=== PATIENT | female | born 1965 | race Caucasian/White ===

== ENCOUNTER 2016-09-28 07:18 | Day surgery (SDC) | payer BC ==
[~2016-09-28] VITALS: Ht 160 cm; Wt 84.0 kg
[~2016-09-28 07:18] MED LIST: ACET-2723 PO; LIDOCAINE 1% (10mg/ml) 2ml SDV INJ ONE; LR 1,000 ML IV SCH; METO-277 PO; MULT-933 PO
--- OUTSIDE RECORDS SUMMARY | 2016-09-28 07:21 | XMS REPORT | Referral Summary ---
Author Author [facility], Family Medicine Organization [facility] Address Unknown Phone Unavailable Care Team Providers Care Court Officer Name Role Phone Ariel Austin Primary Care Physician [phone] Encounter JUDI [id number] Date(s): 09/26/14 - 09/26/14 [facility], [address] [place] [id number]- Discharge Diagnosis: Hypertension Discharge Diagnosis: Well woman exam Discharge Diagnosis: Tobacco use Discharge Disposition: 01-Home or Self Care Attending Physician: Ml Willett APRN Admitting Physician: Ml Willett APRN Vital Signs Most recent to 1 oldest [Reference Range]: Blood Pressure 128/86 mmHg [90-140/60-90 mmHg] (09/26/14 3:51 PM) Problem List Condition Effective Dates Status Health Status Informant Chronic cigarette Active smoker(Confirmed) Bladder 2003 Active tie-up(Confirmed)1 Lesion of Active throat(Confirmed) GERD Active (gastroesophageal reflux disease)(Confirmed) Hypertension(Confirm Active ed) Obesity(Confirmed) Active patient Overweight(Confirmed Active ) Breast pain in Active female(Confirmed) Vaginal 1994 Resolved delivery(Confirmed) Vaginal 1990 Resolved delivery(Confirmed) Chicken Active pox(Confirmed) 1Dr. Cho Allergies, Adverse Reactions, Alerts Substance Reaction Severity Status sulfanilamide topical Active Medications metoprolol succinate 50 mg oral tablet, extended release 50 mg 1 tabs, Oral, Daily, # 30 tabs, 5 Refill(s), Pharmacy: [facility] Start Date: 10/10/14 Status: Ordered Results No data available for this section Immunizations Vaccine Date Refusal Reason tetanus/diphth/pertuss (Tdap) adult/adol 09/26/07 tetanus-diphth toxoids (Td) adult/adol 11/22/01 Procedures Procedure Date Related Diagnosis Body Site Vaginal hysterectomy 1999 Social History Social History Type Response Smoking Status Current every day smoker; Type: Cigarettes; Tobacco use per day: 1 Pack Assessment and Plan Extracted from: Title: Ambulatory Patient Education Author: Ml Willett APRN Date: Family Medicine Health Maintenance, Female A healthy lifestyle and preventative care can promote health and wellness. Maintain regular health, dental, and eye exams. Eat a healthy diet. Foods like vegetables, fruits, whole grains, low-fat dairy products, and lean protein foods contain the nutrients you need without too many calories. Decrease your intake of foods high in solid fats, added sugars, and salt. Get information about a proper diet from your caregiver, if necessary. Regular physical exercise is one of the most important things you can do for your health. Most adults should get at least 150 minutes of moderate- intensity exercise (any activity that increases your heart rate and causes you to sweat) each week. In addition, most adults need muscle-strengthening exercises on 2 or more days a week. Maintain a healthy weight. The body mass index (BMI) is a screening tool to identify possible weight problems. It provides an estimate of body fat based on height and weight. Your caregiver can help determine your BMI, and can help you achieve or maintain a healthy weight. For adults 20 years and older: A BMI below 18.5 is considered underweight. A BMI of 18.5 to 24.9 is normal. A BMI of 25 to 29.9 is considered overweight. A BMI of 30 and above is considered obese. Maintain normal blood lipids and cholesterol by exercising and minimizing your intake of saturated fat. Eat a balanced diet with plenty of fruits and vegetables. Blood tests for lipids and cholesterol should begin at age 20 and be repeated every 5 years. If your lipid or cholesterol levels are high, you are over 50, or you are a high risk for heart disease, you may need your cholesterol levels checked more frequently.Ongoing high lipid and cholesterol levels should be treated with medicines if diet and exercise are not effective. If you smoke, find out from your caregiver how to quit. If you do not use tobacco, do not start. Lung cancer screening is recommended for adults aged 5580 years who are at high risk for developing lung cancer because of a history of smoking. Yearly low-dose computed tomography (CT) is recommended for people who have at least a [id number] history of smoking and are a current smoker or have quit within the past 15 years. A pack year of smoking is smoking an average of 1 pack of cigarettes a day for 1 year (for example: 1 pack a day for 30 years or 2 packs a day for 15 years). Yearly screening should continue until the smoker has stopped smoking for at least 15 years. Yearly screening should also be stopped for people who develop a health problem that would prevent them from having lung cancer treatment. If you are , do not drink alcohol. If you are , be very cautious about drinking alcohol. If you are not and choose to drink alcohol, do not exceed 1 drink per day. One drink is considered to be 12 ounces (355 mL) of beer, 5 ounces (148 mL) of wine, or 1.5 ounces (44 mL) of liquor. Avoid use of street drugs. Do not share needles with anyone. Ask for help if you need support or instructions about stopping the use of drugs. High blood pressure causes heart disease and increases the risk of stroke. Blood pressure should be checked at least every 1 to 2 years. Ongoing high blood pressure should be treated with medicines, if weight loss and exercise are not effective. If you are 55 to 79 years old, ask your caregiver if you should take aspirin to prevent strokes. Diabetes screening involves taking a blood sample to check your fasting blood sugar level. This should be done once every 3 years, after age 45, if you are within normal weight and without risk factors for diabetes. Testing should be considered at a younger age or be carried out more frequently if you are overweight and have at least 1 risk factor for diabetes. Breast cancer screening is essential preventative care for women. You should practice "breast self-awareness." This means understanding the normal appearance and feel of your breasts and may include breast self-examination. Any changes detected, no matter how small, should be reported to a caregiver. Women in their 20s and 30s should have a clinical breast exam (CBE) by a caregiver as part of a regular health exam every 1 to 3 years. After age 40, women should have a CBE every year. Starting at age 40, women should consider having a mammogram (breast X-ray ) every year. Women who have a family history of breast cancer should talk to their caregiver about genetic screening. Women at a high risk of breast cancer should talk to their caregiver about having an MRI and a mammogram every year. Breast cancer gene (BRCA )-related cancer risk assessment is recommended for women who have family members with BRCA -related cancers. BRCA -related cancers include breast, ovarian, tubal, and peritoneal cancers. Having family members with these cancers may be associated with an increased risk for harmful changes (mutations ) in the breast cancer genes BRCA1 and BRCA2 . Results of the assessment will determine the need for genetic counseling and BRCA1 and BRCA2 testing. The Pap test is a screening test for cervical cancer. Women should have a Pap test starting at age 21. Between ages 21 and 29, Pap tests should be repeated every 2 years. Beginning at age 30, you should have a Pap test every 3 years as long as the past 3 Pap tests have been normal. If you had a hysterectomy for a problem that was not cancer or a condition that could lead to cancer, then you no longer need Pap tests. If you are between ages 65 and 70 , and you have had normal Pap tests going back 10 years, you no longer need Pap tests. If you have had past treatment for cervical cancer or a condition that could lead to cancer, you need Pap tests and screening for cancer for at least 20 years after your treatment. If Pap tests have been discontinued, risk factors (such as a new sexual partner) need to be reassessed to determine if screening should be resumed. Some women have medical problems that increase the chance of getting cervical cancer. In these cases, your caregiver may recommend more frequent screening and Pap tests. The human papillomavirus (HPV) test is an additional test that may be used for cervical cancer screening. The HPV test looks for the virus that can cause the cell changes on the cervix. The cells collected during the Pap test can be tested for HPV. The HPV test could be used to screen women aged 30 years and older, and should be used in women of any age who have unclear Pap test results. After the age of 30, women should have HPV testing at the same frequency as a Pap test. Colorectal cancer can be detected and often prevented. Most routine colorectal cancer screening begins at the age of 50 and continues through age 75. However, your caregiver may recommend screening at an earlier age if you have risk factors for colon cancer. On a yearly basis, your caregiver may provide home test kits to check for hidden blood in the stool. Use of a small camera at the end of a tube, to directly examine the colon (sigmoidoscopy or colonoscopy ), can detect the earliest forms of colorectal cancer. Talk to your caregiver about this at age 50, when routine screening begins. Direct examination of the colon should be repeated every 5 to 10 years through age 75, unless early forms of pre-cancerous polyps or small growths are found. Hepatitis C blood testing is recommended for all people born from 1945 through 1965 and any individual with known risks for hepatitis C. Practice safe sex. Use condoms and avoid high-risk sexual practices to reduce the spread of sexually transmitted infections (STIs). Sexually active women aged 25 and younger should be checked for Chlamydia, which is a common sexually transmitted infection. Older women with new or multiple partners should also be tested for Chlamydia. Testing for other STIs is recommended if you are sexually active and at increased risk. Osteoporosis is a disease in which the bones lose minerals and strength with aging. This can result in serious bone fractures. The risk of osteoporosis can be identified using a bone density scan. Women ages 65 and over and women at risk for fractures or osteoporosis should discuss screening with their caregivers. Ask your caregiver whether you should be taking a calcium supplement or vitamin D to reduce the rate of osteoporosis. Menopause can be associated with physical symptoms and risks. Hormone replacement therapy is available to decrease symptoms and risks. You should talk to your caregiver about whether hormone replacement therapy is right for you. Use sunscreen. Apply sunscreen liberally and repeatedly throughout the day. You should seek shade when your shadow is shorter than you. Protect yourself by wearing long sleeves, pants, a wide-brimmed hat, and sunglasses year round, whenever you are outdoors. Notify your caregiver of new moles or changes in moles, especially if there is a change in shape or color. Also notify your caregiver if a mole is larger than the size of a pencil eraser. Stay current with your immunizations. Document Released: 11/30/2011 Document Revised: 09/11/2013 Document Reviewed: ExitCare Patient Information 2014 [employer] [facility]. Nicotine Addiction Nicotine can act as both a stimulant (excites/activates ) and a sedative (calms/ quiets ). Immediately after exposure to nicotine, there is a "kick" caused in part by the drug's stimulation of the adrenal glands and resulting discharge of adrenaline (epinephrine ). The noyola of adrenaline stimulates the body and causes a sudden release of sugar. This means that smokers are always slightly hyperglycemic. Hyperglycemic means that the blood sugar is high, just like in diabetics. Nicotine also decreases the amount of insulin which helps control sugar levels in the body. There is an increase in blood pressure, breathing, and the rate of heart beats. In addition, nicotine indirectly causes a release of dopamine in the brain that controls pleasure and motivation. A similar reaction is seen with other drugs of abuse, such as cocaine and heroin. This dopamine release is thought to cause the pleasurable sensations when smoking. In some different cases, nicotine can also create a calming effect, depending on sensitivity of the smoker's nervous system and the dose of nicotine taken. WHAT HAPPENS WHEN NICOTINE IS TAKEN FOR LONG PERIODS OF TIME? Long-term use of nicotine results in addiction. It is difficult to stop. Repeated use of nicotine creates tolerance. Higher doses of nicotine are needed to get the "kick." When nicotine use is stopped, withdrawal may last a month or more. Withdrawal may begin within a few hours after the last cigarette. Symptoms peak within the first few days and may lessen within a few weeks. For some people, however, symptoms may last for months or longer. Withdrawal symptoms include: Irritability. Craving. Learning and attention deficits. Sleep disturbances. Increased appetite. Craving for tobacco may last for 6 months or longer. Many behaviors done while using nicotine can also play a part in the severity of withdrawal symptoms. For some people, the feel, smell, and sight of a cigarette and the ritual of obtaining, handling, lighting, and smoking the cigarette are closely linked with the pleasure of smoking. When stopped, they also miss the related behaviors which make the withdrawal or craving worse. While nicotine gum and patches may lessen the drug aspects of withdrawal, cravings often persist. WHAT ARE THE MEDICAL CONSEQUENCES OF NICOTINE USE? Nicotine addiction accounts for one-third of all cancers. The top cancer caused by tobacco is lung cancer. Lung cancer is the number one cancer killer of both men and women. Smoking is also associated with cancers of the: Mouth. Pharynx. Larynx. Esophagus. Stomach. Pancreas. Cervix. Kidney. Ureter. Bladder. Smoking also causes lung diseases such as lasting (chronic ) bronchitis and emphysema. It worsens asthma in adults and children. Smoking increases the risk of heart disease, including: Stroke. Heart attack. Vascular disease. Aneurysm. Passive or secondary smoke can also increase medical risks including: Asthma in children. Sudden Infant Syndrome (SIDS). Additionally, dropped cigarettes are the leading cause of residential fire fatalities. Nicotine poisoning has been reported from accidental ingestion of tobacco products by children and pets. usually results in a few minutes from respiratory failure (when a person stops breathing) caused by paralysis. TREATMENT Medication. Nicotine replacement medicines such as nicotine gum and the patch are used to stop smoking. These medicines gradually lower the dosage of nicotine in the body. These medicines do not contain the carbon monoxide and other toxins found in tobacco smoke. Hypnotherapy. Relaxation therapy. Nicotine Anonymous (a 12-step support program). Find times and locations in your local yellow pages. Document Released: 01/20/2005 Document Revised: 08/08/2012 Document Reviewed: ExitCare Patient Information 2014 [employer]. Preventive Care for Adults, Female A healthy lifestyle and preventive care can promote health and wellness. Preventive health guidelines for women include the following hood practices. A routine yearly physical is a good way to check with your health care provider about your health and preventive screening. It is a chance to share any concerns and updates on your health and to receive a thorough exam. Visit your dentist for a routine exam and preventive care every 6 months. [place] your teeth twice a day and floss once a day. Good oral hygiene prevents tooth decay and gum disease. The frequency of eye exams is based on your age, health, family medical history, use of contact lenses, and other factors. Follow your health care provider's recommendations for frequency of eye exams. Eat a healthy diet. Foods like vegetables, fruits, whole grains, low-fat dairy products, and lean protein foods contain the nutrients you need without too many calories. Decrease your intake of foods high in solid fats, added sugars, and salt. Eat the right amount of calories for you.Get information about a proper diet from your health care provider, if necessary. Regular physical exercise is one of the most important things you can do for your health. Most adults should get at least 150 minutes of moderate- intensity exercise (any activity that increases your heart rate and causes you to sweat) each week. In addition, most adults need muscle-strengthening exercises on 2 or more days a week. Maintain a healthy weight. The body mass index (BMI) is a screening tool to identify possible weight problems. It provides an estimate of body fat based on height and weight. Your health care provider can find your BMI, and can help you achieve or maintain a healthy weight.For adults 20 years and older: A BMI below 18.5 is considered underweight. A BMI of 18.5 to 24.9 is normal. A BMI of 25 to 29.9 is considered overweight. A BMI of 30 and above is considered obese. Maintain normal blood lipids and cholesterol levels by exercising and minimizing your intake of saturated fat. Eat a balanced diet with plenty of fruit and vegetables. Blood tests for lipids and cholesterol should begin at age 20 and be repeated every 5 years. If your lipid or cholesterol levels are high, you are over 50, or you are at high risk for heart disease, you may need your cholesterol levels checked more frequently.Ongoing high lipid and cholesterol levels should be treated with medicines if diet and exercise are not working. If you smoke, find out from your health care provider how to quit. If you do not use tobacco, do not start. Lung cancer screening is recommended for adults aged 5580 years who are at high risk for developing lung cancer because of a history of smoking. A yearly low-dose CT scan of the lungs is recommended for people who have at least a 41-[id number]-otsy history of smoking and are a current smoker or have quit within the past 15 years. A pack year of smoking is smoking an average of 1 pack of cigarettes a day for 1 year (for example: 1 pack a day for 30 years or 2 packs a day for 15 years). Yearly screening should continue until the smoker has stopped smoking for at least 15 years. Yearly screening should be stopped for people who develop a health problem that would prevent them from having lung cancer treatment. If you are , do not drink alcohol. If you are , be very cautious about drinking alcohol. If you are not and choose to drink alcohol, do not have more than 1 drink per day. One drink is considered to be 12 ounces (355 mL) of beer, 5 ounces (148 mL) of wine, or 1.5 ounces (44 mL) of liquor. Avoid use of street drugs. Do not share needles with anyone. Ask for help if you need support or instructions about stopping the use of drugs. High blood pressure causes heart disease and increases the risk of stroke. Your blood pressure should be checked at least every 1 to 2 years. Ongoing high blood pressure should be treated with medicines if weight loss and exercise do not work. If you are 5579 years old, ask your health care provider if you should take aspirin to prevent strokes. Diabetes screening involves taking a blood sample to check your fasting blood sugar level. This should be done once every 3 years, after age 45, if you are within normal weight and without risk factors for diabetes. Testing should be considered at a younger age or be carried out more frequently if you are overweight and have at least 1 risk factor for diabetes. Breast cancer screening is essential preventive care for women. You should practice "breast self-awareness." This means understanding the normal appearance and feel of your breasts and may include breast self-examination. Any changes detected, no matter how small, should be reported to a health care provider. Women in their 20s and 30s should have a clinical breast exam (CBE) by a health care provider as part of a regular health exam every 1 to 3 years. After age 40, women should have a CBE every year. Starting at age 40, women should consider having a mammogram (breast X-ray test ) every year. Women who have a family history of breast cancer should talk to their health care provider about genetic screening. Women at a high risk of breast cancer should talk to their health care providers about having an MRI and a mammogram every year. Breast cancer gene (BRCA )-related cancer risk assessment is recommended for women who have family members with BRCA -related cancers. BRCA -related cancers include breast, ovarian, tubal, and peritoneal cancers. Having family members with these cancers may be associated with an increased risk for harmful changes (mutations ) in the breast cancer genes BRCA1 and BRCA2 . Results of the assessment will determine the need for genetic counseling and BRCA1 and BRCA2 testing. The Pap test is a screening test for cervical cancer. A Pap test can show cell changes on the cervix that might become cervical cancer if left untreated. A Pap test is a procedure in which cells are obtained and examined from the lower end of the uterus (cervix ). Women should have a Pap test starting at age 21. Between ages 21 and 29, Pap tests should be repeated every 2 years. Beginning at age 30, you should have a Pap test every 3 years as long as the past 3 Pap tests have been normal. Some women have medical problems that increase the chance of getting cervical cancer. Talk to your health care provider about these problems. It is especially important to talk to your health care provider if a new problem develops soon after your last Pap test. In these cases, your health care provider may recommend more frequent screening and Pap tests. The above recommendations are the same for women who have or have not gotten the vaccine for human papillomavirus (HPV). If you had a hysterectomy for a problem that was not cancer or a condition that could lead to cancer, then you no longer need Pap tests. Even if you no longer need a Pap test, a regular exam is a good idea to make sure no other problems are starting. If you are between ages 65 and 70 years, and you have had normal Pap tests going back 10 years, you no longer need Pap tests. Even if you no longer need a Pap test, a regular exam is a good idea to make sure no other problems are starting. If you have had past treatment for cervical cancer or a condition that could lead to cancer, you need Pap tests and screening for cancer for at least 20 years after your treatment. If Pap tests have been discontinued, risk factors (such as a new sexual partner) need to be reassessed to determine if screening should be resumed. The HPV test is an additional test that may be used for cervical cancer screening. The HPV test looks for the virus that can cause the cell changes on the cervix. The cells collected during the Pap test can be tested for HPV. The HPV test could be used to screen women aged 30 years and older, and should be used in women of any age who have unclear Pap test results. After the age of 30 , women should have HPV testing at the same frequency as a Pap test. Colorectal cancer can be detected and often prevented. Most routine colorectal cancer screening begins at the age of 50 years and continues through age 75 years. However, your health care provider may recommend screening at an earlier age if you have risk factors for colon cancer. On a yearly basis, your health care provider may provide home test kits to check for hidden blood in the stool. Use of a small camera at the end of a tube, to directly examine the colon (sigmoidoscopy or colonoscopy ), can detect the earliest forms of colorectal cancer. Talk to your health care provider about this at age 50, when routine screening begins. Direct exam of the colon should be repeated every 5 10 years through age 75 years, unless early forms of pre-cancerous polyps or small growths are found. People who are at an increased risk for hepatitis B should be screened for this virus. You are considered at high risk for hepatitis B if: You were born in a country where hepatitis B occurs often. Talk with your health care provider about which countries are considered high risk. Your parents were born in a high-risk country and you have not received a shot to protect against hepatitis B (hepatitis B vaccine) . You have HIV or AIDS. You use needles to inject street drugs. You live with, or have sex with, someone who has Hepatitis B. You get hemodialysis treatment. You take certain medicines for conditions like cancer, organ transplantation, and autoimmune conditions. Hepatitis C blood testing is recommended for all people born from 1945 through 1965 and any individual with known risks for hepatitis C. Practice safe sex. Use condoms and avoid high-risk sexual practices to reduce the spread of sexually transmitted infections (STIs). STIs include gonorrhea, chlamydia, syphilis, trichomonas, herpes, HPV, and human immunodeficiency virus (HIV). Herpes, HIV, and HPV are viral illnesses that have no cure. They can result in disability, cancer, and . Sexually active women aged 25 years and younger should be checked for chlamydia. Older women with new or multiple partners should also be tested for chlamydia. Testing for other STIs is recommended if you are sexually active and at increased risk. Osteoporosis is a disease in which the bones lose minerals and strength with aging. This can result in serious bone fractures or breaks. The risk of osteoporosis can be identified using a bone density scan. Women ages 65 years and over and women at risk for fractures or osteoporosis should discuss screening with their health care providers. Ask your health care provider whether you should take a calcium supplement or vitamin D to reduce the rate of osteoporosis. Menopause can be associated with physical symptoms and risks. Hormone replacement therapy is available to decrease symptoms and risks. You should talk to your health care provider about whether hormone replacement therapy is right for you. Use sunscreen. Apply sunscreen liberally and repeatedly throughout the day. You should seek shade when your shadow is shorter than you. Protect yourself by wearing long sleeves, pants, a wide-brimmed hat, and sunglasses year round, whenever you are outdoors. Once a month, do a whole body skin exam, using a mirror to look at the skin on your back. Tell your health care provider of new moles, moles that have irregular borders, moles that are larger than a pencil eraser, or moles that have changed in shape or color. Stay current with required vaccines (immunizations ). Influenza vaccine. All adults should be immunized every year. Tetanus, diphtheria, and acellular pertussis (Td, Tdap) vaccine. women should receive 1 dose of Tdap vaccine during each . The dose should be obtained regardless of the length of time since the last dose. Immunization is preferred during the [id number] week of gestation. An adult who has not previously received Tdap or who does not know her vaccine status should receive 1 dose of Tdap. This initial dose should be followed by tetanus and diphtheria toxoids (Td) booster doses every 10 years. Adults with an unknown or incomplete history of completing a 3-dose immunization series with Td -containing vaccines should begin or complete a primary immunization series including a Tdap dose. Adults should receive a Td booster every 10 years. Varicella vaccine. An adult without evidence of immunity to varicella should receive 2 doses or a second dose if she has previously received 1 dose. females who do not have evidence of immunity should receive the first dose after . This first dose should be obtained before leaving the health care facility. The second dose should be obtained 48 weeks after the first dose. Human papillomavirus (HPV) vaccine. Females aged 1326 years who have not received the vaccine previously should obtain the 3-dose series. The vaccine is not recommended for use in females. However, testing is not needed before receiving a dose. If a female is found to be after receiving a dose, no treatment is needed. In that case, the remaining doses should be delayed until after the . Immunization is recommended for any person with an immunocompromised condition through the age of 26 years if she did not get any or all doses earlier. During the 3-dose series, the second dose should be obtained 48 weeks after the first dose. The third dose should be obtained 24 weeks after the first dose and 16 weeks after the second dose. Zoster vaccine. One dose is recommended for adults aged 60 years or older unless certain conditions are present. Measles, mumps, and rubella (MMR) vaccine. Adults born before 1957 generally are considered immune to measles and mumps. Adults born in 1957 or later should have 1 or more doses of MMR vaccine unless there is a contraindication to the vaccine or there is laboratory evidence of immunity to each of the three diseases. A routine second dose of MMR vaccine should be obtained at least 28 days after the first dose for students attending postsecondary schools, health care workers, or international travelers. People who received inactivated measles vaccine or an unknown type of measles vaccine during should receive 2 doses of MMR vaccine. People who received inactivated mumps vaccine or an unknown type of mumps vaccine before 1978 and are at high risk for mumps infection should consider immunization with 2 doses of MMR vaccine. For females of childbearing age, rubella immunity should be determined. If there is no evidence of immunity, females who are not should be vaccinated. If there is no evidence of immunity, females who are should delay immunization until after . Unvaccinated health care workers born before 1955 who lack laboratory evidence of measles, mumps, or rubella immunity or laboratory confirmation of disease should consider measles and mumps immunization with 2 doses of MMR vaccine or rubella immunization with 1 dose of MMR vaccine. Pneumococcal 13-valent conjugate (PCV13) vaccine. When indicated, a person who is uncertain of her immunization history and has no record of immunization should receive the PCV13 vaccine. An adult aged 19 years or older who has certain medical conditions and has not been previously immunized should receive 1 dose of PCV13 vaccine. This PCV13 should be followed with a dose of pneumococcal polysaccharide (PPSV23) vaccine. The PPSV23 vaccine dose should be obtained at least 8 weeks after the dose of PCV13 vaccine. An adult aged 19 years or older who has certain medical conditions and previously received 1 or more doses of PPSV23 vaccine should receive 1 dose of PCV13. The PCV13 vaccine dose should be obtained 1 or more years after the last PPSV23 vaccine dose. Pneumococcal polysaccharide (PPSV23) vaccine. When PCV13 is also indicated , PCV13 should be obtained first. All adults aged 65 years and older should be immunized. An adult younger than age 65 years who has certain medical conditions should be immunized. Any person who resides in a [facility]p or long -term care facility should be immunized. An adult smoker should be immunized. People with an immunocompromised condition and certain other conditions should receive both PCV13 and PPSV23 vaccines. People with human immunodeficiency virus (HIV) infection should be immunized as soon as possible after diagnosis. Immunization during chemotherapy or radiation therapy should be avoided. Routine use of PPSV23 vaccine is not recommended for [place] Indians, [place] Natives, or people younger than 65 years unless there are medical conditions that require PPSV23 vaccine. When indicated, people who have unknown immunization and have no record of immunization should receive PPSV23 vaccine. One-time revaccination 5 years after the first dose of PPSV23 is recommended for people aged 1964 years who have chronic kidney failure, nephrotic syndrome, asplenia, or immunocompromised conditions. People who received 12 doses of PPSV23 before age 65 years should receive another dose of PPSV23 vaccine at age 65 years or later if at least 5 years have passed since the previous dose. Doses of PPSV23 are not needed for people immunized with PPSV23 at or after age 65 years. Meningococcal vaccine. Adults with asplenia or persistent complement component deficiencies should receive 2 doses of quadrivalent meningococcal conjugate (MenACWY-D) vaccine. The doses should be obtained at least 2 months apart. Microbiologists working with certain meningococcal bacteria, recruits, people at risk during an outbreak, and people who travel to or live in countries with a high rate of meningitis should be immunized. A first-year college student up through age 21 years who is living in a residence [place] should receive a dose if she did not receive a dose on or after her 16th birthday. Adults who have certain high-risk conditions should receive one or more doses of vaccine. Hepatitis A vaccine. Adults who wish to be protected from this disease, have certain high-risk conditions, work with hepatitis A-infected animals, work in hepatitis A research labs, or travel to or work in countries with a high rate of hepatitis A should be immunized. Adults who were previously unvaccinated and who anticipate close contact with an international adoptee during the first 60 days after arrival in the [place] from a country with a high rate of hepatitis A should be immunized. Hepatitis B vaccine. Adults who wish to be protected from this disease, have certain high-risk conditions, may be exposed to blood or other infectious body fluids, are household contacts or sex partners of hepatitis B positive people, are clients or workers in certain care facilities, or travel to or work in countries with a high rate of hepatitis B should be immunized. Haemophilus influenzae type b (Hib) vaccine. A previously unvaccinated person with asplenia or sickle cell disease or having a scheduled splenectomy should receive 1 dose of Hib vaccine. Regardless of previous immunization, a recipient of a hematopoietic stem cell transplant should receive a 3-dose series 612 months after her successful transplant. Hib vaccine is not recommended for adults with HIV infection. Preventive Services / Frequency Ages 19 to 39years Blood pressure check. / Every 1 to 2 years. Lipid and cholesterol check. / Every 5 years beginning at age 20. Clinical breast exam. / Every 3 years for women in their 20s and 30s. BRCA -related cancer risk assessment. / For women who have family members with a BRCA -related cancer (breast, ovarian, tubal, or peritoneal cancers). Pap test. / Every 2 years from ages 21 through 29. Every 3 years starting at age 30 through age 65 or 70 with a history of 3 consecutive normal Pap tests. HPV screening. / Every 3 years from ages 30 through ages 65 to 70 with a history of 3 consecutive normal Pap tests. Hepatitis C blood test. / For any individual with known risks for hepatitis C. Skin self-exam. / Monthly. Influenza vaccine. / Every year. Tetanus, diphtheria, and acellular pertussis (Tdap, Td) vaccine. / Consult your health care provider. women should receive 1 dose of Tdap vaccine during each . 1 dose of Td every 10 years. Varicella vaccine. / Consult your health care provider. females who do not have evidence of immunity should receive the first dose after . HPV vaccine. / 3 doses over 6 months, if 26 and younger. The vaccine is not recommended for use in females. However, testing is not needed before receiving a dose. Measles, mumps, rubella (MMR) vaccine. / You need at least 1 dose of MMR if you were born in 1957 or later. You may also need a 2nd dose. For females of childbearing age, rubella immunity should be determined. If there is no evidence of immunity, females who are not should be vaccinated. If there is no evidence of immunity, females who are should delay immunization until after . Pneumococcal 13-valent conjugate (PCV13) vaccine. / Consult your health care provider. Pneumococcal polysaccharide (PPSV23) vaccine. / 1 to 2 doses if you smoke cigarettes or if you have certain conditions. Meningococcal vaccine. / 1 dose if you are age 19 to 21 years and a first -year college student living in a residence [place], or have one of several medical conditions, you need to get vaccinated against meningococcal disease. You may also need additional booster doses. Hepatitis A vaccine. / Consult your health care provider. Hepatitis B vaccine. / Consult your health care provider. Haemophilus influenzae type b (Hib) vaccine. / Consult your health care provider. Ages 40 to 64years Blood pressure check. / Every 1 to 2 years. Lipid and cholesterol check. / Every 5 years beginning at age 20 years. Lung cancer screening. / Every year if you are aged 5580 years and have a [id number] history of smoking and currently smoke or have quit within the past 15 years. Yearly screening is stopped once you have quit smoking for at least 15 years or develop a health problem that would prevent you from having lung cancer treatment. Clinical breast exam. / Every year after age 40 years. BRCA -related cancer risk assessment. / For women who have family members with a BRCA -related cancer (breast, ovarian, tubal, or peritoneal cancers). Mammogram. / Every year beginning at age 40 years and continuing for as long as you are in good health. Consult with your health care provider. Pap test. / Every 3 years starting at age 30 years through age 65 or 70 years with a history of 3 consecutive normal Pap tests. HPV screening. / Every 3 years from ages 30 years through ages 65 to 70 years with a history of 3 consecutive normal Pap tests. Fecal occult blood test (FOBT) of stool. / Every year beginning at age 50 years and continuing until age 75 years. You may not need to do this test if you get a colonoscopy every 10 years. Flexible sigmoidoscopy or colonoscopy. / Every 5 years for a flexible sigmoidoscopy or every 10 years for a colonoscopy beginning at age 50 years and continuing until age 75 years. Hepatitis C blood test. / For all people born from 1945 through 1965 and any individual with known risks for hepatitis C. Skin self-exam. / Monthly. Influenza vaccine. / Every year. Tetanus, diphtheria, and acellular pertussis (Tdap/Td) vaccine. / Consult your health care provider. women should receive 1 dose of Tdap vaccine during each . 1 dose of Td every 10 years. Varicella vaccine. / Consult your health care provider. females who do not have evidence of immunity should receive the first dose after . Zoster vaccine. / 1 dose for adults aged 60 years or older. Measles, mumps, rubella (MMR) vaccine. / You need at least 1 dose of MMR if you were born in 1957 or later. You may also need a 2nd dose. For females of childbearing age, rubella immunity should be determined. If there is no evidence of immunity, females who are not should be vaccinated. If there is no evidence of immunity, females who are should delay immunization until after . Pneumococcal 13-valent conjugate (PCV13) vaccine. / Consult your health care provider. Pneumococcal polysaccharide (PPSV23) vaccine. / 1 to 2 doses if you smoke cigarettes or if you have certain conditions. Meningococcal vaccine. / Consult your health care provider. Hepatitis A vaccine. / Consult your health care provider. Hepatitis B vaccine. / Consult your health care provider. Haemophilus influenzae type b (Hib) vaccine. / Consult your health care provider. Ages 65 years and over Blood pressure check. / Every 1 to 2 years. Lipid and cholesterol check. / Every 5 years beginning at age 20 years. Lung cancer screening. / Every year if you are aged 5580 years and have a [id number] history of smoking and currently smoke or have quit within the past 15 years. Yearly screening is stopped once you have quit smoking for at least 15 years or develop a health problem that would prevent you from having lung cancer treatment. Clinical breast exam. / Every year after age 40 years. BRCA -related cancer risk assessment. / For women who have family members with a BRCA -related cancer (breast, ovarian, tubal, or peritoneal cancers). Mammogram. / Every year beginning at age 40 years and continuing for as long as you are in good health. Consult with your health care provider. Pap test. / Every 3 years starting at age 30 years through age 65 or 70 years with 3 consecutive normal Pap tests. Testing can be stopped between 65 and 70 years with 3 consecutive normal Pap tests and no abnormal Pap or HPV tests in the past 10 years. HPV screening. / Every 3 years from ages 30 years through ages 65 or 70 years with a history of 3 consecutive normal Pap tests. Testing can be stopped between 65 and 70 years with 3 consecutive normal Pap tests and no abnormal Pap or HPV tests in the past 10 years. Fecal occult blood test (FOBT) of stool. / Every year beginning at age 50 years and continuing until age 75 years. You may not need to do this test if you get a colonoscopy every 10 years. Flexible sigmoidoscopy or colonoscopy. / Every 5 years for a flexible sigmoidoscopy or every 10 years for a colonoscopy beginning at age 50 years and continuing until age 75 years. Hepatitis C blood test. / For all people born from 1945 through 1965 and any individual with known risks for hepatitis C. Osteoporosis screening. / A one-time screening for women ages 65 years and over and women at risk for fractures or osteoporosis. Skin self-exam. / Monthly. Influenza vaccine. / Every year. Tetanus, diphtheria, and acellular pertussis (Tdap/Td) vaccine. / 1 dose of Td every 10 years. Varicella vaccine. / Consult your health care provider. Zoster vaccine. / 1 dose for adults aged 60 years or older. Pneumococcal 13-valent conjugate (PCV13) vaccine. / Consult your health care provider. Pneumococcal polysaccharide (PPSV23) vaccine. / 1 dose for all adults aged 65 years and older. Meningococcal vaccine. / Consult your health care provider. Hepatitis A vaccine. / Consult your health care provider. Hepatitis B vaccine. / Consult your health care provider. Haemophilus influenzae type b (Hib) vaccine. / Consult your health care provider. Family history and personal history of risk and conditions may change your health care provider's recommendations. Document Released: 07/13/2002 Document Revised: 03/07/2014 Document Reviewed: [facility] Patient Information 2014 [facility]. Smoking Cessation Quitting smoking is important to your health and has many advantages. However, it is not always easy to quit since nicotine is a very addictive drug. Often times, people try 3 times or more before being able to quit. This document explains the best ways for you to prepare to quit smoking. Quitting takes hard work and a lot of effort, but you can do it. ADVANTAGES OF QUITTING SMOKING You will live longer, feel better, and live better. Your body will feel the impact of quitting smoking almost immediately. Within 20 minutes, blood pressure decreases. Your pulse returns to its normal level. After 8 hours, carbon monoxide levels in the blood return to normal. Your oxygen level increases. After 24 hours, the chance of having a heart attack starts to decrease. Your breath, hair, and body stop smelling like smoke. After 48 hours, damaged nerve endings begin to recover. Your sense of taste and smell improve. After 72 hours, the body is virtually free of nicotine. Your bronchial tubes relax and breathing becomes easier. After 2 to 12 weeks, lungs can hold more air. Exercise becomes easier and circulation improves. The risk of having a heart attack, stroke, cancer, or lung disease is greatly reduced. After 1 year, the risk of coronary heart disease is cut in half. After 5 years, the risk of stroke falls to the same as a nonsmoker. After 10 years, the risk of lung cancer is cut in half and the risk of other cancers decreases significantly. After 15 years, the risk of coronary heart disease drops, usually to the level of a nonsmoker. If you are , quitting smoking will improve your chances of having a healthy baby. The people you live with, especially any children, will be healthier. You will have extra money to spend on things other than cigarettes. QUESTIONS TO THINK ABOUT BEFORE ATTEMPTING TO QUIT You may want to talk about your answers with your caregiver. Why do you want to quit? If you tried to quit in the past, what helped and what did not? What will be the most difficult situations for you after you quit? How will you plan to handle them? Who can help you through the tough times? Your family? Friends? A caregiver ? What pleasures do you get from smoking? What ways can you still get pleasure if you quit? Here are some questions to ask your caregiver: How can you help me to be successful at quitting? What medicine do you think would be best for me and how should I take it? What should I do if I need more help? What is smoking withdrawal like? How can I get information on withdrawal? GET READY Set a quit date. Change your environment by getting rid of all cigarettes, ashtrays, matches , and lighters in your home, car, or work. Do not let people smoke in your home. Review your past attempts to quit. Think about what worked and what did not. GET SUPPORT AND ENCOURAGEMENT You have a better chance of being successful if you have help. You can get support in many ways. Tell your family, friends, and co-workers that you are going to quit and need their support. Ask them not to smoke around you. Get individual, group, or telephone counseling and support. Programs are available at local hospitals and health centers. Call your local health department for information about programs in your area. Spiritual beliefs and practices may help some smokers quit. Download a "quit meter" on your computer to keep track of quit statistics, such as how long you have gone without smoking, cigarettes not smoked, and money saved. Get a self-help book about quitting smoking and staying off of tobacco. LEARN NEW SKILLS AND BEHAVIORS Distract yourself from urges to smoke. Talk to someone, go for a walk, or occupy your time with a task. Change your normal routine. Take a different route to work. Drink tea instead of coffee. Eat breakfast in a different place. Reduce your stress. Take a hot bath, exercise, or read a book. Plan something enjoyable to do every day. Reward yourself for not smoking. Explore interactive web-based programs that specialize in helping you quit. GET MEDICINE AND USE IT CORRECTLY Medicines can help you stop smoking and decrease the urge to smoke. Combining medicine with the above behavioral methods and support can greatly increase your chances of successfully quitting smoking. Nicotine replacement therapy helps deliver nicotine to your body without the negative effects and risks of smoking. Nicotine replacement therapy includes nicotine gum, lozenges, inhalers, nasal sprays, and skin patches. Some may be available [id number] and others require a prescription. Antidepressant medicine helps people abstain from smoking, but how this works is unknown. This medicine is available by prescription. Nicotinic receptor partial agonist medicine simulates the effect of nicotine in your brain. This medicine is available by prescription. Ask your caregiver for advice about which medicines to use and how to use them based on your health history. Your caregiver will tell you what side effects to look out for if you choose to be on a medicine or therapy. Carefully read the information on the package. Do not use any other product containing nicotine while using a nicotine replacement product. RELAPSE OR DIFFICULT SITUATIONS Most relapses occur within the first 3 months after quitting. Do not be discouraged if you start smoking again. Remember, most people try several times before finally quitting. You may have symptoms of withdrawal because your body is used to nicotine. You may crave cigarettes, be irritable, feel very hungry, cough often, get headaches, or have difficulty concentrating. The withdrawal symptoms are only temporary. They are strongest when you first quit, but they will go away within 1014 days. To reduce the chances of relapse, try to: Avoid drinking alcohol. Drinking lowers your chances of successfully quitting. Reduce the amount of caffeine you consume. Once you quit smoking, the amount of caffeine in your body increases and can give you symptoms, such as a rapid heartbeat, sweating, and anxiety. Avoid smokers because they can make you want to smoke. Do not let weight gain distract you. Many smokers will gain weight when they quit, usually less than 10 pounds. Eat a healthy diet and stay active. You can always lose the weight gained after you quit. Find ways to improve your mood other than smoking. FOR MORE INFORMATION www.smokefree.gov Document Released: 05/11/2002 Document Revised: 11/15/2012 Document Reviewed: ExitCare Patient Information 2014 [employer]. No follow up information was provided. Extracted from: Title: Office Visit Note Author: Ml Willett APRN Date: 09/26/14 Assessment/Plan 1.Well woman exam Normal exam w/pap. Return in 1 year for exam or sooner for any problems or concerns. Ordered: MG Mammogram Routine Screening Bilat Office Visit Level 4 Est 90453 2.Tobacco use Chantix to be taken as directed. Ordered: Office Visit Level 4 Est 55803 3.Hypertension Controlled with current medication regimen. Refills requested and sent. Ordered: Office Visit Level 4 Est 31740
--- OUTSIDE RECORDS SUMMARY | 2016-09-28 07:21 | XMS REPORT | Referral Summary ---
Author Organization Unknown Address Unknown Phone Unavailable Care Team Providers Care Gynecological Assistant Name Role Phone Ariel Austin Primary Care Physician [phone] Encounter VC JUDI [id number] Date(s): 09/26/14 - 09/26/14 [facility] Dan, [place], Family [address] [place], [place] [id number] Discharge Diagnosis: Hypertension Discharge Diagnosis: Well woman exam Discharge Diagnosis: Tobacco use Discharge Disposition: Home or Self Care Attending Physician: Ml Willett APRN Admitting Physician: Ml Willett APRN Vital Signs Most recent to 1 oldest [Reference Range]: Blood Pressure 128/86 mmHg [90-140/60-90 mmHg] (09/26/14 3:51 PM) Problem List Condition Effective Dates Status Health Status Informant Lesion of Active throat(Confirmed) Obesity(Confirmed) Active patient Breast pain in Active female(Confirmed) Allergies, Adverse Reactions, Alerts Substance Reaction Severity Status sulfanilamide topical Active Medications Chantix Starter Pack 0.5 mg-1 mg oral tablet 1 tabs, Oral, BID, as directed on package labeling, # 53 tabs, 0 Refill(s), Pharmacy: [facility] Special Instructions: as directed on package labeling Start Date: 09/26/14 Status: Ordered metoprolol succinate 50 mg oral tablet, extended release 1 tabs, Oral, Daily, patient needs appointment prior to refills, # 30 tabs, 0 Refill(s), Pharmacy: [facility] Special Instructions: patient needs appointment prior to refills Start Date: 08/31/14 Status: Ordered Results No data available for this section Immunizations Vaccine Date Refusal Reason tetanus-diphth toxoids (Td) adult/adol 11/22/01 Procedures Procedure Date Related Diagnosis Body Site Hysterectomy Social History Social History Type Response Smoking [...] for people who have at least a 43-aieg-gjte history of smoking and are a current [...] Released: 11/30/2011 Document Revised: 09/11/2013 Document Reviewed: [facility]. Nicotine Addiction Nicotine can act as both [...] 08/08/2012 Document Reviewed: ExitCare Patient Information 2014 [employer]. Preventive Care for Adults, Female A healthy [...] exam and preventive care every 6 months. Hulen your teeth twice a day and floss [...] for people who have at least a 56-ufxg-zosp history of smoking and are a current [...] last dose. Immunization is preferred during the [id number] week of gestation. An adult who has [...] and rubella (MMR) vaccine. Adults born before 1955 generally are considered immune to measles and mumps. Adults born in 1955 or later should have 1 or more [...] immunized. Any person who resides in a shelter or long -term care facility should be [...] of PPSV23 vaccine is not recommended for Vietnamese Indians, [place] Natives, or people younger than [...] are aged 5580 years and have a 48-crkz-fcvz history of smoking and currently smoke or [...] are aged 5580 years and have a 70-ogpn-mltr history of smoking and currently smoke or [...] Released: 07/13/2002 Document Revised: 03/07/2014 Document Reviewed: [facility] Patient Information 2014 [facility]. Smoking Cessation Quitting smoking is important to [...] and skin patches. Some may be available pblh-cmx-[id number] and others require a prescription. Antidepressant medicine [...] 11/15/2012 Document Reviewed: ExitCare Patient Information 2014 [employer]. No follow up information was provided. Extracted from: Title: Office Visit Note Author: Ml Willett APRN Date: 09/26/14 Assessment/Plan 1.Well woman exam Normal exam w/pap. Return in 1 year for exam or sooner for any problems or concerns. Ordered: MG Mammogram Routine Screening Bilat Office Visit Level 4 Est 32305 2.Tobacco use Chantix to be taken as directed. Ordered: Office Visit Level 4 Est 24761 3.Hypertension Controlled with current medication regimen. Refills requested and sent. Ordered: Office Visit Level 4 Est 57592
--- OUTSIDE RECORDS SUMMARY | 2016-09-28 07:21 | XMS REPORT | Referral Summary ---
Author Author [facility] Dan [place], [facility] Organization [facility] Dan [place], [facility] Address Unknown Phone Unavailable Care Team Providers Care Adult Probation Officer Name Role Phone Ariel Austin Primary Care Physician [phone] Encounter VC Date(s): 07/27/16 - 07/27/16 [facility] LEOLA Dan [place], [address] [place] [address] Discharge Disposition: 01-Home or Self Care Attending Physician: Maximino Yoon PA-C Admitting Physician: Maximino Yoon PA-C Vital Signs Most recent to 1 oldest [Reference Range]: Temperature Tympanic 36.6 degC [36.6-38.1 degC] (07/27/16 6:09 PM) Peripheral Pulse 72 bpm Rate [60-100 bpm] (07/27/16 6:09 PM) Blood Pressure 120/82 mmHg [90-140/60-90 mmHg] (07/27/16 6:09 PM) SpO2 97 % (07/27/16 6:09 PM) Problem List Condition Effective Dates Status [...] Reaction Severity Status sulfanilamide topical Active Medications albuterol 90 mcg/inh inhalation powder 2 puffs, Inhalation, q4hr, as needed, # 1 Each, 0 Refill(s), Pharmacy: [facility] Start Date: 02/04/16 Status: Ordered Chantix 1 mg oral tablet See Instructions, TAKE 1 TABLET BY MOUTH TWICE DAILY -- START AFTER completing STARTING PACK, # 56 tabs, eRx: [facility], TAKE 1 TABLET BY MOUTH TWICE DAILY -- START AFTER completing STARTING PACK Start Date: 01/13/16 Status: Ordered Metoprolol Succinate ER 50 mg oral tablet, extended release See Instructions, TAKE 1 TABLET BY MOUTH EVERY DAY, # 90 tabs, 3 Refill(s), Pharmacy: [facility] Start Date: 10/18/15 Status: Ordered multivitamin Daily, 0 Refill(s) Start Date: 07/27/16 Status: Ordered Results No data available for this section Immunizations Given and Recorded Vaccine Date Status Refusal Reason tetanus/diphth/pertuss (Tdap) adult/adol 09/26/07 Recorded tetanus-diphth toxoids (Td) adult/adol 11/22/01 Given Procedures Procedure Date Related Diagnosis Body Site Vaginal hysterectomy 1999 Social History Social History Type Response Smoking Status Current every day smoker; Type: Cigarettes; Tobacco use per day: Less than 1/4 pack Assessment and Plan No data available for this section
--- OUTSIDE RECORDS SUMMARY | 2016-09-28 07:21 | XMS REPORT ---
Author Author GENERATED, SYSTEM Organization Unknown Address Unknown Phone Unavailable Care Team Providers Care Cruise Staff Member Name Role Phone PP Unavailable Reason For Visit Chief Complaint 11/27/13 R SHLDR RC,TENDONITIS/RT SHLDR,PAIN/RT SHLDR DYSFUNCTION Social History Functional Status Vital Signs Results Problems Encounter Diagnosis No relevant problems exist. Encounters Encounter Diagnosis No relevant problems exist. Plan of Care Procedures No relevant procedures performed. Immunizations No immunizations administered or ordered. Hospital Course Hospital Discharge Instructions Allergies, Adverse Reactions, Alerts * No Latex Allergy. * No IV Contrast Allergy. Medication Medication reconciliation has not been performed.
--- OUTSIDE RECORDS SUMMARY | 2016-09-28 07:21 | XMS REPORT | Continuity of Care Document ---
Author Author [facility] Organization [facility] Address Unknown Phone Unavailable Allergies Medications Problems Procedures Results Encounters ACCT No. Visit Date/Time Discharge Status Pt. Type Provider Facility Loc./Unit Complaint [id number] 08/07/2013 13:48:00 08/07/2013 23 :59:59 C[facility] Outpatient
--- OUTSIDE RECORDS SUMMARY | 2016-09-28 07:21 | XMS REPORT | Referral Summary ---
Author Organization Unknown Address Unknown Phone Unavailable Care Team Providers Care Fibrous Plasterer Name Role Phone Ariel Austin Primary Care Physician [phone] Encounter VC Date(s): 06/21/14 - 06/21/14 [facility] LE[facility] Dan, [place], Family [address] [place] [address] Discharge Diagnosis: Rhinitis Discharge Diagnosis: ACUTE SINUSITIS, UNSPECIFIED Discharge Diagnosis: Acute URI Discharge Disposition: Home or Self Care Attending Physician: Ml Willett APRN Admitting Physician: Ml Willett APRN Vital Signs Most recent to 1 oldest [Reference Range]: Temperature Tympanic 37.2 degC [36.6-38.1 degC] (06/21/14 9:35 AM) Blood Pressure 124/86 mmHg [90-140/60-90 mmHg] (06/21/14 9:35 AM) Problem List Condition Effective Dates Status Health Status Informant Lesion of Active throat(Confirmed) Breast pain in Active female(Confirmed) Allergies, Adverse Reactions, Alerts Substance Reaction Severity Status sulfanilamide topical Active Medications albuterol CFC free 90 mcg/inh inhalation aerosol 2 puffs, Inhalation, q6hr, as needed for wheezing, # 18 g, 0 Refill(s), Pharmacy : [email or web address] Start Date: 06/21/14 Status: Ordered Metoprolol Tartrate 50 mg oral tablet tabs, Oral, BID, 0 Refill(s) Start Date: 01/23/14 Status: Ordered Mucinex DM tabs, Oral, q12hr, 0 Refill(s) Start Date: 01/23/14 Status: Ordered Zithromax Z-Jaswinder 250 mg oral tablet 1 packets, Oral, Daily, as directed on package labeling, X 5 days, # 6 tabs, 0 Refill(s), Pharmacy: [facility], 1 packets Oral Daily,x5 days,Instr:as directed on package labeling Special Instructions: as directed on package labeling Start Date: 06/21/14 Stop Date: 06/26/14 Status: Ordered Results No data available for this section Immunizations Vaccine Date Refusal Reason tetanus-diphth toxoids (Td) adult/adol 11/22/01 Procedures Procedure Date Related Diagnosis Body Site Hysterectomy Social History Social History Type Response Smoking Status Current every day smoker; Type: Cigarettes; Tobacco use per day: 1 Pack Assessment and Plan Extracted from: Title: Ambulatory Patient Education Author: Ml Willett APRN Date: Allergy Sinusitis Sinusitis is redness, soreness, and swelling (inflammation ) of the paranasal sinuses. Paranasal sinuses are air pockets within the bones of your face ( beneath the eyes, the middle of the forehead, or above the eyes). In healthy paranasal sinuses, mucus is able to drain out, and air is able to circulate through them by way of your nose. However, when your paranasal sinuses are inflamed, mucus and air can become trapped. This can allow bacteria and other germs to grow and cause infection. Sinusitis can develop quickly and last only a short time (acute ) or continue over a long period (chronic ). Sinusitis that lasts for more than 12 weeks is considered chronic. CAUSES Causes of sinusitis include: Allergies. Structural abnormalities, such as displacement of the cartilage that separates your nostrils (deviated septum ), which can decrease the air flow through your nose and sinuses and affect sinus drainage. Functional abnormalities, such as when the small hairs (cilia ) that line your sinuses and help remove mucus do not work properly or are not present. SYMPTOMS Symptoms of acute and chronic sinusitis are the same. The primary symptoms are pain and pressure around the affected sinuses. Other symptoms include: Upper toothache. Earache. Headache. Bad breath. Decreased sense of smell and taste. A cough, which worsens when you are lying flat. Fatigue. Fever. Thick drainage from your nose, which often is green and may contain pus ( purulent ). Swelling and warmth over the affected sinuses. DIAGNOSIS Your caregiver will perform a physical exam. During the exam, your caregiver may : Look in your nose for signs of abnormal growths in your nostrils (nasal polyps) . Tap over the affected sinus to check for signs of infection. View the inside of your sinuses (endoscopy ) with a special imaging device with a light attached (endoscope ), which is inserted into your sinuses. If your caregiver suspects that you have chronic sinusitis, one or more of the following tests may be recommended: Allergy tests. Nasal cultureA sample of mucus is taken from your nose and sent to a lab and screened for bacteria. Nasal cytologyA sample of mucus is taken from your nose and examined by your caregiver to determine if your sinusitis is related to an allergy. TREATMENT Most cases of acute sinusitis are related to a viral infection and will resolve on their own within 10 days. Sometimes medicines are prescribed to help relieve symptoms (pain medicine, decongestants, nasal steroid sprays, or saline sprays) . However, for sinusitis related to a bacterial infection, your caregiver will prescribe antibiotic medicines. These are medicines that will help kill the bacteria causing the infection. Rarely, sinusitis is caused by a fungal infection. In theses cases, your caregiver will prescribe antifungal medicine. For some cases of chronic sinusitis, surgery is needed. Generally, these are cases in which sinusitis recurs more than 3 times per year, despite other treatments. HOME CARE INSTRUCTIONS Drink plenty of water. Water helps thin the mucus so your sinuses can drain more easily. Use a humidifier. Inhale steam 3 to 4 times a day (for example, sit in the bathroom with the shower running). Apply a warm, moist washcloth to your face 3 to 4 times a day, or as directed by your caregiver. Use saline nasal sprays to help moisten and clean your sinuses. Take xikt-llp-tiljcik or prescription medicines for pain, discomfort, or fever only as directed by your caregiver. SEEK IMMEDIATE MEDICAL CARE IF: You have increasing pain or severe headaches. You have nausea, vomiting, or drowsiness. You have swelling around your face. You have vision problems. You have a stiff neck. You have difficulty breathing. MAKE SURE YOU: Understand these instructions. Will watch your condition. Will get help right away if you are not doing well or get worse. Document Released: 05/17/2006 Document Revised: 08/08/2012 Document Reviewed: [facility] Patient Information [address] [facility]. Family Medicine Upper Respiratory Infection, Adult An upper respiratory infection (URI) is also sometimes known as the common cold. The upper respiratory tract includes the nose, sinuses, throat, trachea, and bronchi. Bronchi are the airways leading to the lungs. Most people improve within 1 week, but symptoms can last up to 2 weeks. A residual cough may last even longer. CAUSES Many different viruses can infect the tissues lining the upper respiratory tract. The tissues become irritated and inflamed and often become very moist. Mucus production is also common. A cold is contagious. You can easily spread the virus to others by oral contact. This includes kissing, sharing a glass, coughing, or sneezing. Touching your mouth or nose and then touching a surface, which is then touched by another person, can also spread the virus. SYMPTOMS Symptoms typically develop 1 to 3 days after you come in contact with a cold virus. Symptoms vary from person to person. They may include: Runny nose. Sneezing. Nasal congestion. Sinus irritation. Sore throat. Loss of voice (laryngitis ). Cough. Fatigue. Muscle aches. Loss of appetite. Headache. Low-grade fever. DIAGNOSIS You might diagnose your own cold based on familiar symptoms, since most people get a cold 2 to 3 times a year. Your caregiver can confirm this based on your exam. Most importantly, your caregiver can check that your symptoms are not due to another disease such as strep throat, sinusitis, pneumonia, asthma, or epiglottitis. Blood tests, throat tests, and X-rays are not necessary to diagnose a common cold, but they may sometimes be helpful in excluding other more serious diseases. Your caregiver will decide if any further tests are required. RISKS AND COMPLICATIONS You may be at risk for a more severe case of the common cold if you smoke cigarettes, have chronic heart disease (such as heart failure) or lung disease ( such as asthma), or if you have a weakened immune system. The very young and very old are also at risk for more serious infections. Bacterial sinusitis, middle ear infections, and bacterial pneumonia can complicate the common cold. The common cold can worsen asthma and chronic obstructive pulmonary disease ( COPD). Sometimes, these complications can require emergency medical care and may be life-threatening. PREVENTION The best way to protect against getting a cold is to practice good hygiene. Avoid oral or hand contact with people with cold symptoms. Wash your hands often if contact occurs. There is no clear evidence that vitamin C, vitamin E, echinacea, or exercise reduces the chance of developing a cold. However, it is always recommended to get plenty of rest and practice good nutrition. TREATMENT Treatment is directed at relieving symptoms. There is no cure. Antibiotics are not effective, because the infection is caused by a virus, not by bacteria. Treatment may include: Increased fluid intake. Sports drinks offer valuable electrolytes, sugars, and fluids. Breathing heated mist or steam (vaporizer or shower). Eating chicken soup or other clear broths, and maintaining good nutrition. Getting plenty of rest. Using gargles or lozenges for comfort. Controlling fevers with ibuprofen or acetaminophen as directed by your caregiver. Increasing usage of your inhaler if you have asthma. Zinc gel and zinc lozenges, taken in the first 24 hours of the common cold, can shorten the duration and lessen the severity of symptoms. Pain medicines may help with fever, muscle aches, and throat pain. A variety of non-prescription medicines are available to treat congestion and runny nose. Your caregiver can make recommendations and may suggest nasal or lung inhalers for other symptoms. HOME CARE INSTRUCTIONS Only take sbqv-xtw-mnaanco or prescription medicines for pain, discomfort, or fever as directed by your caregiver. Use a warm mist humidifier or inhale steam from a shower to increase air moisture. This may keep secretions moist and make it easier to breathe. Drink enough water and fluids to keep your urine clear or pale yellow. Rest as needed. Return to work when your temperature has returned to normal or as your caregiver advises. You may need to stay home longer to avoid infecting others. You can also use a face mask and careful hand washing to prevent spread of the virus. SEEK MEDICAL CARE IF: After the first few days, you feel you are getting worse rather than better. You need your caregiver's advice about medicines to control symptoms. You develop chills, worsening shortness of breath, or brown or red sputum. These may be signs of pneumonia. You develop yellow or brown nasal discharge or pain in the face, especially when you bend forward. These may be signs of sinusitis. You develop a fever, swollen neck glands, pain with swallowing, or white areas in the back of your throat. These may be signs of strep throat. SEEK IMMEDIATE MEDICAL CARE IF: You have a fever. You develop severe or persistent headache, ear pain, sinus pain, or chest pain. You develop wheezing, a prolonged cough, cough up blood, or have a change in your usual mucus (if you have chronic lung disease). You develop sore muscles or a stiff neck. Document Released: 11/10/2001 Document Revised: 08/08/2012 Document Reviewed: ExitCare Patient Information 2014 [employer] [facility]. No follow up information was provided. Extracted from: Title: Office Visit Note Author: Ml Willett APRN Date: 06/21/14 Assessment/Plan ACUTE SINUSITIS, UNSPECIFIED Saline nasal washes am and pm. Saline Nasal spray or gel as needed. Increase oral fluids and environmental humidity. OTC pain reliever/fever director clinical information services of choice, per package directions. RTC/IC/ ER if symptoms not improving or worsen. Ordered: Office Visit Level 3 Est 36305 Acute URI Rx to be taken as prescribed. Advised use of Albuterol inhaler for chesst milagros/tightness, demonstrated use. Ordered: Office Visit Level 3 Est 86556 Rhinitis Nasonex per package directions. Ordered: Office Visit Level 3 Est 14035 Orders: albuterol, 2 puffs, Inhalation, q6hr, as needed for wheezing, # 18 g, 0 Refill(s), Pharmacy: [facility] azithromycin, 1 packets, Oral, Daily, as directed on package labeling, X 5 days, # 6 tabs, 0 Refill(s), Pharmacy: [facility], 1 packets Oral Daily ,x5 days,Instr:as directed on package labeling
--- OUTSIDE RECORDS SUMMARY | 2016-09-28 07:21 | XMS REPORT | Summary of Care ---
Author Author Jovan Staton M.D. Organization Unknown Address [address] [place], [place] [id number] Phone Unavailable Care Team Providers Care Co Founder & Ceo Name Role Phone Unavailable Unavailable Functional Status Functional Status Health Issues* Name Dates Details Functional status health issues are not documented Status: Cognitive Status Health Issues* Name Dates Details Cognitive status health issues are not documented Status: Problems Name Dates Details Rotator cuff (capsule) sprain (840.4, S43.429A) Status: Active Encounter related to worker's compensation claim (V70.3, Z02.6) Status: Active Strain of right shoulder (840.9, S46.911A) Status: Active Medications Name Dates Details Medication not documented Allergies and Adverse Reactions Name Dates Details No Known Drug Allergies Status: Active Procedures Procedure Dates Details MRI SHOULDER RIGHT Ordered:02-Mar-2014 Immunization Name Dates Details Immunizations not documented Social History Smoking Status* Unknown if ever smoked Vital Signs Date Test Result Details No Known Vitals to report Results Date Description Value Details Results not documented Plan of Care Planned Observations* Name Dates Details Planned Goals not documented Goal Planned Encounters* Appointment; Provider: Jovan Staton On 21-Mar-2014 16:15 Instructions * Instructions not documented Encounters Appointment; Jovan Staton Encounter Diagnosis: Problem not documented On 28-Feb-2014 15:15 Appointment; Jovan Staton Diagnosis: Problem not documented On 07-Feb-2014 15:45 Appointment; Jovan Staton Encounter Diagnosis: Problem not documented On 23-Jan-2014 15:30 Appointment; Jovan Staton Encounter Diagnosis: Problem not documented On 02-Jan-2014 15:15 Appointment; Jovan Staton Diagnosis: Problem not documented On 14:45 Appointment; Jovan Staton Diagnosis: Problem not documented On 14:15 Appointment; Jovan Staton Diagnosis: Problem not documented On 08:45 Appointment; Ml Salazar Encounter Diagnosis: Problem not documented On 14:30
--- OUTSIDE RECORDS SUMMARY | 2016-09-28 07:21 | XMS REPORT | Summary of Care ---
Author Author Jovan Staton M.D. Organization Unknown Address [address], [place] [id number] Phone Unavailable Care Team Providers Care Business Economist Name Role Phone Unavailable Unavailable Functional Status Functional Status Health Issues* Name Dates Details Functional status health issues are not documented Status: Cognitive Status Health Issues* Name Dates Details Cognitive status health issues are not documented Status: Problems Name Dates Details Strain of right shoulder (840.9, S46.911A) Status: Active Encounter related to worker's compensation claim (V70.3, Z02.6) Status: Active Rotator cuff (capsule) sprain (840.4, S43.429A) Status: Active Degenerative joint disease, shoulder, 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, M19.011) Status: Active Medications Name Dates Details Medication not documented Allergies and Adverse Reactions Name Dates Details No Known Drug Allergies Status: Active Procedures Procedure Dates Details Procedures not documented Immunization Name Dates Details Immunizations not documented Social History Smoking Status* Unknown if ever smoked Vital Signs Date Test Result Details No Known Vitals to report Results Date Description Value Details Results not documented Plan of Care Planned Observations* Name Dates Details Planned Goals not documented Goal Instructions * Instructions not documented Encounters Appointment; Jovan Staton Encounter Diagnosis: Problem not documented On 21-Mar-2014 16:15 Appointment; Jovan Staton Diagnosis: Problem not documented On 28-Feb-2014 15:15 Appointment; Jovan Staton Diagnosis: Problem not documented On 07-Feb-2014 15:45 Appointment; Jovan Staton Diagnosis: Problem not documented On 23-Jan-2014 15:30 Appointment; Jovan Staton Diagnosis: Problem not documented On 02-Jan-2014 15:15 Appointment; Jovan Staton Diagnosis: Problem not documented On 14:45 Appointment; Jovan Staton Diagnosis: Problem not documented On 14:15 Appointment; Jovan Staton Diagnosis: Problem not documented On 08:45 Appointment; Salazar, Ml Encounter Diagnosis: Problem not documented On 14:30
--- OUTSIDE RECORDS SUMMARY | 2016-09-28 07:21 | XMS REPORT | Referral Summary ---
Author Author [facility] Organization [facility] Address Unknown Phone Unavailable Care Team Providers Care Cartography Technician Name Role Phone Ariel Austin Primary Care Physician [phone] Encounter Date(s): 02/04/16 - 02/04/16 [facility], [address] [place] [address]- Discharge Diagnosis: Acute sinusitis Discharge Diagnosis: Cough Discharge Diagnosis: Antibiotic-induced yeast infection Discharge Disposition: 01-Home or Self Care Attending Physician: Vika Springer PA-C Admitting Physician: Vika Springer PA-C Vital Signs Most recent to 1 oldest [Reference Range]: Peripheral Pulse 68 bpm Rate [60-100 bpm] (02/04/16 3:47 PM) Blood Pressure 118/82 mmHg [90-140/60-90 mmHg] (02/04/16 3:47 PM) Problem List Condition Effective Dates Status [...] 1 Each, 0 Refill(s), Pharmacy: [facility] Start Date: 02/04/16 Status: Ordered amoxicillin 500 mg oral capsule 500 mg 1 caps, Oral, TID, X 10 days, # 30 caps, 0 Refill(s), Pharmacy: [facility], 1 caps Oral TID,x10 days Start Date: 02/04/16 Stop Date: 02/14/16 Status: Ordered Chantix 1 mg oral tablet See Instructions, TAKE 1 TABLET BY MOUTH TWICE DAILY -- START AFTER completing STARTING PACK, # 56 tabs, eRx: [facility], TAKE 1 TABLET BY MOUTH TWICE DAILY -- START AFTER completing STARTING PACK Start Date: 01/13/16 Status: Ordered Diflucan 150 mg oral tablet See Instructions, Take 1 tab PO x 1 with first day of antibiotic, and 1 tab PO x 1 on last day of antibiotic., # 2 Each, 0 Refill(s), Pharmacy: [facility], Take 1 tab PO x 1 with first day of antibiotic, and 1 tab PO x 1 on last day of a... Start Date: 02/04/16 Stop Date: 02/14/16 Status: Ordered Metoprolol Succinate ER 50 mg oral tablet, extended release See Instructions, TAKE 1 TABLET BY MOUTH EVERY DAY, # 90 tabs, 3 Refill(s), Pharmacy: [facility] Start Date: 10/18/15 Status: Ordered promethazine-codeine 6.25 mg-10 mg/5 mL oral syrup 5 mL, Oral, Bedtime (once a day), as needed for cough, [facility] ( [phone], # 120 mL, 0 Refill(s) Start Date: 02/04/16 Status: Ordered Results No data available for this section Immunizations Vaccine Date Refusal Reason tetanus/diphth/pertuss (Tdap) adult/adol 09/26/07 tetanus-diphth toxoids (Td) adult/adol 11/22/01 Procedures Procedure Date Related Diagnosis Body Site Vaginal hysterectomy 1999 Social History Social History Type Response Smoking Status Current every day smoker; Type: Cigarettes; Tobacco use per day: 1 Pack Assessment and Plan Extracted from: Title: Ambulatory Patient Education Author: Vika Springer PA-C Date : 02/04/16 Allergy Cough, Adult A cough is a reflex that helps clear your throat and airways. It can help heal the body or may be a reaction to an irritated airway. A cough may only last 2 or 3 weeks (acute) or may last more than 8 weeks (chronic). CAUSES Acute cough: Viral or bacterial infections. Chronic cough: Infections. Allergies. Asthma. Post-nasal drip. Smoking. Heartburn or acid reflux. Some medicines. Chronic lung problems (COPD). Cancer. SYMPTOMS Cough. Fever. Chest pain. Increased breathing rate. High-pitched whistling sound when breathing (wheezing). Colored mucus that you cough up (sputum). TREATMENT A bacterial cough may be treated with antibiotic medicine. A viral cough must run its course and will not respond to antibiotics. Your caregiver may recommend other treatments if you have a chronic cough. HOME CARE INSTRUCTIONS Only take lfru-yzy-ptyvbzp or prescription medicines for pain, discomfort , or fever as directed by your caregiver. Use cough suppressants only as directed by your caregiver. Use a cold steam vaporizer or humidifier in your bedroom or home to help loosen secretions. Sleep in a semi-upright position if your cough is worse at night. Rest as needed. Stop smoking if you smoke. SEEK IMMEDIATE MEDICAL CARE IF: You have pus in your sputum. Your cough starts to worsen. You cannot control your cough with suppressants and are losing sleep. You begin coughing up blood. You have difficulty breathing. You develop pain which is getting worse or is uncontrolled with medicine. You have a fever. MAKE SURE YOU: Understand these instructions. Will watch your condition. Will get help right away if you are not doing well or get worse. This information is not intended to replace advice given to you by your health care provider. Make sure you discuss any questions you have with your health care provider. Document Released: 11/13/2011 Document Revised: 08/08/2012 Document Reviewed: [facility] Patient Information 2016 [employer] [facility]. Sinusitis, Adult Sinusitis is redness, soreness, and inflammation of the paranasal sinuses. Paranasal sinuses are air pockets within the bones of your face. They are located beneath your eyes, in the middle of your forehead, and above your eyes. In healthy paranasal sinuses, mucus is able to drain out, and air is able to circulate through them by way of your nose. However, when your paranasal sinuses are inflamed, mucus and air can become trapped. This can allow bacteria and other germs to grow and cause infection. Sinusitis can develop quickly and last only a short time (acute) or continue over a long period (chronic). Sinusitis that lasts for more than 12 weeks is considered chronic. CAUSES Causes of sinusitis include: Allergies. Structural abnormalities, such as displacement of the cartilage that separates your nostrils (deviated septum), which can decrease the air flow through your nose and sinuses and affect sinus drainage. Functional abnormalities, such as when the small hairs (cilia) that line your sinuses and help remove mucus do not work properly or are not present. SIGNS AND SYMPTOMS Symptoms of acute and chronic sinusitis are the same. The primary symptoms are pain and pressure around the affected sinuses. Other symptoms include: Upper toothache. Earache. Headache. Bad breath. Decreased sense of smell and taste. A cough, which worsens when you are lying flat. Fatigue. Fever. Thick drainage from your nose, which often is green and may contain pus ( purulent). Swelling and warmth over the affected sinuses. DIAGNOSIS Your health care provider will perform a physical exam. During your exam, your health care provider may perform any of the following to help determine if you have acute sinusitis or chronic sinusitis: Look in your nose for signs of abnormal growths in your nostrils (nasal polyps). Tap over the affected sinus to check for signs of infection. View the inside of your sinuses using an imaging device that has a light attached (endoscope). If your health care provider suspects that you have chronic sinusitis, one or more of the following tests may be recommended: Allergy tests. Nasal culture. A sample of mucus is taken from your nose, sent to a lab, and screened for bacteria. Nasal cytology. A sample of mucus is taken from your nose and examined by your health care provider to determine if your sinusitis is related to an allergy. TREATMENT Most cases of acute sinusitis are related to a viral infection and will resolve on their own within 10 days. Sometimes, medicines are prescribed to help relieve symptoms of both acute and chronic sinusitis. These may include pain medicines, decongestants, nasal steroid sprays, or saline sprays. However, for sinusitis related to a bacterial infection, your health care provider will prescribe antibiotic medicines. These are medicines that will help kill the bacteria causing the infection. Rarely, sinusitis is caused by a fungal infection. In these cases, your health care provider will prescribe antifungal medicine. For some cases of chronic sinusitis, surgery is needed. Generally, these are cases in which sinusitis recurs more than 3 times per year, despite other treatments. HOME CARE INSTRUCTIONS Drink plenty of water. Water helps thin the mucus so your sinuses can drain more easily. Use a humidifier. Inhale steam 34 times a day (for example, sit in the bathroom with the shower running). Apply a warm, moist washcloth to your face 34 times a day, or as directed by your health care provider. Use saline nasal sprays to help moisten and clean your sinuses. Take medicines only as directed by your health care provider. If you were prescribed either an antibiotic or antifungal medicine, finish it all even if you start to feel better. SEEK IMMEDIATE MEDICAL CARE IF: You have increasing pain or severe headaches. You have nausea, vomiting, or drowsiness. You have swelling around your face. You have vision problems. You have a stiff neck. You have difficulty breathing. This information is not intended to replace advice given to you by your health care provider. Make sure you discuss any questions you have with your health care provider. Document Released: 05/17/2006 Document Revised: 06/07/2015 Document Reviewed: [facility] Patient Information 2016 [employer] [facility]. No follow up information was provided. Extracted from: Title: Office Visit Note- Sinusitis Author: Vika Springer PA-C Date : 02/04/16 Assessment/Plan Acute sinusitis Will treat with Amoxil x 10 days for this. May continue on Mucinex-D. Push fluids. Ordered: Office Visit Level 4 Est 03879 Antibiotic-induced yeast infection Pt states that sheusually gets ayeast infection when she takes abx, [facility] day 10 [facility]. Ordered: Office Visit Level 4 Est 96672 Cough Prometh/codeinefaxed to pharmacy for pt totake before bed. Warned of drowsiness. She requests an albuterol inhaler. This was sent to pharmacy as well. RTC if not improving. Ordered: Office Visit Level 4 Est 25708 Orders: albuterol, 2 puffs, Inhalation, q4hr, as needed, # 1 Each, 0 Refill(s) , [facility]acy: [facility] amoxicillin, 500 mg 1 caps, Oral, TID, X 10 days, # 30 caps, 0 Refill(s), Pharmacy: [facility], 1 caps Oral TID,x10 days fluconazole, See Instructions, Take 1 tab PO x 1 with first day of antibiotic , and 1 tab PO x 1 on last day of antibiotic., # 2 Each, 0 Refill(s), Pharmacy: [facility], Take 1 tab PO x 1 with first day of antibiotic, and 1 tab PO x 1 on last day of a... promethazine-codeine, 5 mL, Oral, Bedtime (once a day), as needed for cough, [facility] , # 120 mL, 0 Refill(s)
--- OUTSIDE RECORDS SUMMARY | 2016-09-28 07:22 | XMS REPORT | Referral Summary ---
Author Author [facility] Organization [facility] Address Unknown Phone Unavailable Care Team Providers Care Senior Core Java Developer Name Role Phone Ariel Austin Primary Care Physician [phone] Encounter Date(s): 11/13/14 - 11/13/14 [facility] [address] [facility] [place] [address] Discharge Diagnosis: Otalgia Discharge Diagnosis: Cyst of tonsil Discharge Disposition: 01-Home or Self Care Attending Physician: Noah Michele MD Admitting Physician: Noah Michele MD Vital Signs No data available for this section Problem List Condition Effective Dates Status Health [...] Reaction Severity Status sulfanilamide topical Active Medications Metoprolol Succinate ER 50 mg oral tablet, extended release See Instructions, TAKE 1 TABLET BY MOUTH EVERY DAY, # 30 Each, [facility]Rx: [facility] [place], TAKE 1 TABLET BY MOUTH EVERY DAY Start Date: 04/16/15 Status: Ordered Results No data available for this section Immunizations Vaccine Date Refusal Reason tetanus/diphth/pertuss (Tdap) adult/adol 09/26/07 tetanus-diphth toxoids (Td) adult/adol 11/22/01 Procedures Procedure Date Related Diagnosis Body Site Excision or destruction of lesion of pharynx, 11/13/14 any method Vaginal hysterectomy 1999 Social History Social History Type Response Smoking Status Current every day smoker; Type: Cigarettes; Tobacco use per day: 1 Pack Assessment and Plan Extracted from: Title: Office Visit Note Author: Noah Michele MD Date: 11/13/14 Assessment/Plan 1.Cyst of tonsil Ordered: Excision Or Destruction Of Lesion Of Pharynx, Any Method 63644 2.Otalgia Ordered: Office Visit Level 2 Est 25567
--- OUTSIDE RECORDS SUMMARY | 2016-09-28 07:22 | XMS REPORT | Continuity of Care Document ---
Author Author Yasir Austin MD Organization [facility] Address [address] [place] [address] Phone Care Team Providers Care Interior Design Consultant Name Role Phone Yasir Austin PP Unavailable Payers Payer name Insurance type Covered republican ID Authorization(s) Unknown Problems Condition Effective Dates (start - stop) Clinical Status Routine Medical Exam - *Routine Gynecological Examination - *Routine Urinary Tract Infection - *Acute Cervicalgia - *Acute Pain in joint involving shoulder region - *Acute Family History Family Member Diagnosis Age At Onset Status Father (Unknown) emphysema Yes Mother (Unknown) CAD Yes Mother (Unknown) Diabetes Yes Mother (Unknown) kidney failure Yes Social History Social History Element Description Quantity Unknown Allergies, Adverse Reactions, Alerts Substance Reaction Severity Status ANESTHESIA TRAY Unknown SULFANILAMIDE Unknown Medications Medication Instructions Dosage Effective Dates (start - stop) Status metoprolol succinate ER 50 mg tablet,extended release 24 hr Take 1 tablet by mouth every day. - Active Chantix Continuing Month Jaswinder 1 mg tablet USE DIRECTED - Active Immunizations Vaccine Date Status Comments Tdap (Adacel ) completed - Completed reason: source unspecified Td (adult) completed - Completed reason: source unspecified Results Test Name Date and Time Measure Units Reference Range Abnormal Flag Comments Unknown Vital Signs Date / Time: Height Weight Pulse Rate Blood Pressure Temperature /13:50:00 64.00 in 191.00 lbs 130/86 mm[Hg] 97.8 F Procedures Procedure Date Unknown Encounters Encounter Location Date Patient Visit [facility] Patient Visit [facility] Patient Visit [facility] Patient Visit [facility] Patient Visit [facility] Advance Directives Directive Effective Date Unknown
--- OUTSIDE RECORDS SUMMARY | 2016-09-28 07:22 | XMS REPORT | Referral Summary ---
Author Author [facility] Organization [facility] Address Unknown Phone Unavailable Care Team Providers Care Telephone Order Clerk Room Service Name Role Phone Ariel Austin Primary Care Physician [phone] Encounter Date(s): 02/10/16 - 02/10/16 [facility], [address] [place] [address] Discharge Diagnosis: Acute sinusitis Discharge Disposition: 01-Home or Self Care Attending Physician: Vika Springer PA-C Admitting Physician: Vika Springer PA-C Vital Signs Most recent to 1 oldest [Reference Range]: Peripheral Pulse 82 bpm Rate [60-100 bpm] (02/10/16 3:37 PM) Respiratory Rate 18 br/min [14-20 br/min] (02/10/16 3:37 PM) Blood Pressure 132/90 mmHg [90-140/60-90 mmHg] (02/10/16 3:37 PM) Problem List Condition Effective Dates Status [...] needed, # 1 Each, 0 Refill(s), Pharmacy: [facility] Start Date: 02/04/16 Status: Ordered amoxicillin 500 mg oral capsule 500 mg 1 caps, Oral, TID, X 10 days, # 30 caps, 0 Refill(s), [facility], 1 caps Oral TID,x10 days Start Date: 02/04/16 Stop Date: 02/14/16 Status: Ordered Chantix 1 mg oral tablet See Instructions, TAKE 1 TABLET BY MOUTH TWICE DAILY -- START AFTER completing STARTING PACK, # 56 tabs, [facility], TAKE 1 TABLET BY MOUTH TWICE DAILY -- START AFTER completing STARTING PACK Start Date: 01/13/16 Status: Ordered Diflucan 150 mg oral tablet See Instructions, Take 1 tab PO x 1 with first day of antibiotic, and 1 tab PO x 1 on last day of antibiotic., # 2 Each, 0 Refill(s), [facility], Take 1 tab PO x 1 with first day of antibiotic, and 1 tab PO x 1 on last day of a... Start Date: 02/04/16 Stop Date: 02/14/16 Status: Ordered Metoprolol Succinate ER 50 mg oral tablet, extended release See Instructions, TAKE 1 TABLET BY MOUTH EVERY DAY, # 90 tabs, 3 Refill(s), Pharmacy: [facility] [place] Start Date: 10/18/15 Status: Ordered predniSONE 20 mg oral tablet 40 mg 2 tabs, Oral, Daily, X 5 days, # 10 tabs, 0 Refill(s), [facility], 2 tabs Oral Daily,x5 days Start Date: 02/10/16 Stop Date: 02/15/16 Status: Ordered promethazine-codeine 6.25 mg-10 mg/5 mL oral syrup 5 mL, Oral, Bedtime (once a day), as needed for cough, Pharmacy [facility] [place] , # 120 mL, 0 Refill(s) Start Date: [...] Education Author: Vika Springer PA-C Date : 02/10/16 Allergy Sinusitis, Adult Sinusitis is redness, soreness, and [...] Released: 05/17/2006 Document Revised: 06/07/2015 Document Reviewed: [employer] Patient Information 2016 [employer] [facility]. Cough, Adult A cough is a reflex. It helps you clear your throat and airways. A cough can help heal your body. A cough can last 2 or 3 weeks (acute) or may last more than 8 weeks (chronic). Some common causes of a cough can include an infection, allergy, or a cold. HOME CARE Only take medicine as told by your doctor. If given, take your medicines (antibiotics) as told. Finish them even if you start to feel better. Use a cold steam vaporizer or humidifier in your home. This can help loosen thick spit (secretions). Sleep so you are almost sitting up (semi-upright). Use pillows to do this. This helps reduce coughing. Rest as needed. Stop smoking if you smoke. GET HELP RIGHT AWAY IF: You have yellowish-white fluid (pus) in your thick spit. Your cough gets worse. Your medicine does not reduce coughing, and you are losing sleep. You cough up blood. You have trouble breathing. Your pain gets worse and medicine does not help. You have a fever. MAKE SURE YOU: Understand these instructions. Will watch your condition. Will get help right away if you are not doing well or get worse. This information is not intended to replace advice given to you by your health care provider. Make sure you discuss any questions you have with your health care provider. Document Released: 01/28/2012 Document Revised: 06/07/2015 Document Reviewed: [facility] Patient Information 2016 [employer] [facility]. No follow up information was provided. Extracted from: Title: Office Visit Note- F/U URI Author: Vika Springer PA-C Date: 02/10/16 Assessment/Plan Acute sinusitis Continue and finish full course of Amoxil (and Diflucan for abx induced yeast infection). Push fluids. Also prescribed Prednisone x 5 days for this. Ordered: Office Visit Level 4 Est 15438 Cough Will check CXR today. Pt did become very emotional, and"didn't want to know" if there were anyissues from her many years ofsmoking. D/w pt the need to check for pneumonia and she was agreeable. Will adjust abx if needed. Ordered: Office Visit Level 4 Est 28201 XR Chest 2 Views Orders: predniSONE, 40 mg 2 tabs, Oral, Daily, X 5 days, # 10 tabs, 0 Refill(s ), Pharmacy: [facility] [place], 2 tabs Oral Daily,x5 days
--- OUTSIDE RECORDS SUMMARY | 2016-09-28 07:22 | XMS REPORT | Referral Summary ---
Author Organization Unknown Address Unknown Phone Unavailable Care Team Providers Care Welcome Center Agent Name Role Phone Ariel Austin Primary Care Physician [phone] Encounter [facility] [id number] Date(s): 08/17/14 - 08/17/14 [facility], [facility], Otolaryngology [address] [facility] [place] [address] Discharge Disposition: Home or Self Care Attending Physician: Noah Michele [...] refills, # 30 tabs, 0 Refill(s), Pharmacy: [facility] Special Instructions: patient needs appointment prior to refills Start Date: 07/27/14 Status: Ordered Results No data available for this section Immunizations Vaccine Date Refusal Reason tetanus-diphth toxoids (Td) adult/adol 11/22/01 Procedures Procedure Date Related Diagnosis Body Site Hysterectomy Social History Social History Type Response Smoking Status Current every day smoker; Type: Cigarettes; Tobacco use per day: 1 Pack Assessment and Plan No data available for this section
--- OUTSIDE RECORDS SUMMARY | 2016-09-28 07:22 | XMS REPORT | Referral Summary ---
Author Author [facility], Family Medicine Organization [facility] Address Unknown Phone Unavailable Care Team Providers Care Paper [facility] Machine Tender Name Role Phone Ariel Austin Primary Care Physician [phone] Encounter VC Date(s): 10/18/15 - 10/18/15 [facility], [address] [place] [id number] Discharge Disposition: 01-Home or Self Care Attending Physician: Yasir Austin MD Admitting Physician: Yasir Austin MD Vital Signs Most recent to 1 oldest [Reference Range]: Blood Pressure 130/88 mmHg [90-140/60-90 mmHg] (10/18/15 3:57 PM) Problem List Condition Effective Dates Status [...] Severity Status sulfanilamide topical Active Medications Chantix 1 mg oral tablet 1 mg 1 tabs, Oral, BID, to start after starting pack., # 56 tabs, 1 Refill(s), Pharmacy: [facility] - [place], 1 tabs Oral BID,Instr:to start after starting pack. Start Date: 10/18/15 Status: Ordered Chantix Starter Pack 0.5 mg-1 mg oral tablet 1 tabs, Oral, BID, as directed on package labeling, # 53 tabs, 0 Refill(s), Pharmacy: [facility] [place] Start Date: 10/18/15 Status: Ordered Metoprolol Succinate ER 50 mg oral tablet, extended release See Instructions, TAKE 1 TABLET BY MOUTH EVERY DAY, # 90 tabs, 3 Refill(s), Pharmacy: [facility] [place] Start Date: 10/18/15 Status: Ordered Results Chemistry Most recent to 1 oldest [Reference Range]: Sodium Lvl [135-144 142 mEq/L mEq/L] (10/18/15 4:40 PM) Potassium Lvl 4.2 mEq/L [3.5-5.2 mEq/L] (10/18/15 4:40 PM) Chloride [99-111 108 mEq/L mEq/L] (10/18/15 4:40 PM) CO2 [22-31 mEq/L] 26 mEq/L (10/18/15 4:40 PM) AGAP [3-20] 8 (10/18/15 4:40 PM) BUN [10-20 mg/dL] 12 mg/dL (10/18/15 4:40 PM) Glucose Lvl [70-99 98 mg/dL mg/dL] (10/18/15 4:40 PM) Creatinine Lvl 0.77 mg/dL [0.57-1.11 mg/dL] (10/18/15 4:40 PM) eGFR [>60 mL/min] >60 mL/min 1 (10/18/15 4:40 PM) Calcium Lvl 9.3 mg/dL [8.9-10.5 mg/dL] (10/18/15 4:40 PM) Albumin Lvl [3.5-5.0 4.2 gm/dL gm/dL] (10/18/15 4:40 PM) Total Protein 6.3 gm/dL [6.4-8.3 gm/dL] *LOW* (10/18/15 4:40 PM) Globulin [1.8-4.0 2.1 gm/dL gm/dL] (10/18/15 4:40 PM) ALT [0-55 U/L] 16 U/L (10/18/15 4:40 PM) AST [5-34 U/L] 17 U/L (10/18/15 4:40 PM) Alk Phos [40-150 83 U/L U/L] (10/18/15 4:40 PM) Bili Total [0.2-1.2 0.1 mg/dL mg/dL] *LOW* (10/18/15 4:40 PM) T4 [4.8-11.7 mcg/dL] 4.9 mcg/dL (10/18/15 4:40 PM) TSH [0.35-4.94] 1.60 (10/18/15 4:40 PM) T3 Total [87-178 99 ng/dL ng/dL] (10/18/15 4:40 PM) 1Result Comment: Multiply eGFR results by 1.21 for race. Immunizations Vaccine Date Refusal Reason tetanus/diphth/pertuss (Tdap) adult/adol 09/26/07 tetanus-diphth toxoids (Td) adult/adol 11/22/01 Procedures Procedure Date Related Diagnosis Body Site Vaginal hysterectomy 1999 Social History Social History Type Response Smoking Status Current every day smoker; Type: Cigarettes; Tobacco use per day: 1 Pack Assessment and Plan No data available for this section
[2016-09-28 07:47] VITALS: BP 175/99; PULSE 87; RESP 16; TEMP 98.7; O2SAT 94; Ht 160 cm; Wt 84.0 kg
[2016-09-28] MEDS: FLEET PHOSPHO-SODA 133 ML ENEMA RECTALLY PRN ×2 (08:13→08:18)
[2016-09-28] MEDS ORDERED: PROPOFOL 500mg 50 ML IV ONE (08:16)
--- NOTE | 2016-09-28 09:11 | ANESPREOP ---
Anesthesia Record Date and Time DATE: 09/28/16 TIME: 09:09 Pre-Op Diagnosis cancer screening Proposed Surgical Procedure colonoscopy NPO since: 0700 Allergies: Coded Allergies: Sulfa (Sulfonamide Antibiotics) (Unverified Allergy, Unknown, 09/28/16) Ht/Wt/BMI Height: 5 ' 3.00 " Weight: 84.000 kg BMI: 32.8 kg/m2 Vital Signs Date Time Temp Pulse Resp B/P Pulse Ox O2 Delivery O2 Flow Rate FiO2 09/28/16 07:47 98.7 87 16 175/99 94 Room Air Medications Inpatient Medications Current Medications Medications (Trade) Dose Ordered Sig/Rhonda Start Time Stop Time Status Last Admin Dose Admin Lactated Ringer's (Lactated Ringers) 1,000 ml @ 30 mls/hr Q24H 09/28/16 07:00 09/28/16 08:13 30 MLS/HR Sodium Biphosphate/ Sodium Phosphate (Fleet Enema) 1 enema PRN PRN 09/28/16 08:15 UNV 09/28/16 08:18 1 ENEMA Acetaminophen (Tylenol Extra Strength) 500 Mg Tablet, 1-2 TAB PO Q6H PRN for PAIN/FEVER, (Reported) Last Taken: on 09/24/16 1700 Metoprolol Succinate (Metoprolol Succinate) 50 Mg Tab.er.24h, 1 TAB PO DAILY, (Reported) Last Taken: on 09/28/16 0600 Multivitamin (Multi-Day Vitamins) 1 Each Tablet , 1 TAB PO DAILY, (Reported) Last Taken: on 09/13/16 0800 Currently on Beta Jese: Yes Beta Jese Last Taken: METOPROLOL 09/27/16 AT 0620 Medical/Surgical History Anesthesia PMH: Reports: *Hypertension (PER H&P), Reflux (PER H&P), Denies: * Diabetes, Anesthesia Reactions (NO AIRWAY- N&V), Cancer, Glaucoma, Malignant Hyperthermia, Renal Disease, Sleep Apnea, Thyroid Disease Smoking Status: Current every day smoker Has pt. smoked today?: No Use Chewing Tobacco?: No Second Hand Exposure: No Substance Use Type: does not use Alcohol Intake: none HX of Last Menstrual Period: HYSTERECTOMY Past Surgical History Orthopedic Surgeries: Abdominal Surgeries: Genitourinary Surgeries: Yes - BLADDER TIE UP PER H&P Cardiac Surgeries: Endocrine Surgeries: Reproductive Surgeries: Yes - HYSTERECTOMY PER H&P Neurological Surgeries: Ear Surgeries: Nose Surgeries: Throat Surgeries: Other Surgeries: Anesthesia Adverse Reactions: FOUND none Family Hx of Anesthesia Advers: none Hx of Motion Sickness: No Pertinent Findings EKG Rhythm: Sinus Rhythm Physical Exam Respiratory: Lungs clear Cardiovascular: FOUND Regular rate, rhythm, FOUND No murmur Airway Assessment Mallampati Score: I TMD: 3 Fingerbreadths Neck Extension: Good Teeth: Chipped Teeth/Crowns Overall Assessment: No Airway Concerns ASA: 2 Plan Anesthesia Plan: TIVA Discussion Discussed risks/options/alternatives of anesthesia and questions answered. Patient consents. Nursing pain assessment noted. Present: Spouse Attestation Statement Prior to the delivery of any anesthetic medication, I examined the patient, developed the plan, obtained the patient's consent and discussed the risk and benefits of the procedure with the patient/guardian. ZAK PÉREZ CRNA September 28, 2016 09:11
[2016-09-28 09:30] VITALS: BP 103/54; PULSE 73; RESP 16; TEMP 97.8; O2SAT 99
[2016-09-28 09:45] VITALS: BP 102/62; PULSE 76; RESP 16; O2SAT 93
--- NOTE | 2016-09-28 09:48 | ANESPO ---
Post-Op Note Date 09/28/16 Time: 09:47 Status Pt Participated in Evaluation: Pt participated in person Vital Signs Date Time Temp Pulse Resp B/P Pulse Ox O2 Delivery O2 Flow Rate FiO2 09/28/16 07:47 98.7 87 16 175/99 94 Room Air Respiratory Function: Airway patent, Regular respirations Cardiovascular Function: Regular pulse Mental Status: Alert/oriented Pain Level Intensity: 0 Hydration: Taking po fluids Complications during Recovery None apparent Follow-Up Instructions Instructions Per Surgeon ZAK PÉREZ CRNA September 28, 2016 09:48
[2016-09-28 10:00] VITALS: BP 103/54; PULSE 73; RESP 16; TEMP 97.8; O2SAT 99
[2016-09-28 10:15] VITALS: BP 129/74; PULSE 73; RESP 16; O2SAT 97
--- NOTE | 2016-09-28 11:26 | OPNOTEF ---
DATE OF PROCEDURE 09/28/2016 SURGEON Yahir Lu MD PREOPERATIVE DIAGNOSIS Colorectal cancer surveillance. POSTOPERATIVE DIAGNOSIS Colorectal cancer surveillance, rectal polyps x 4. PROCEDURE Colonoscopy with polypectomies via cold biopsy technique within rectum. ANESTHESIA TIVA BRIEF HISTORY/INDICATIONS Mrs. Carvalho is a 51-year-old female who presents today to [facility] to undergo colonoscopy to serve as a portion of her overall colorectal cancer surveillance. For completeness please refer to notes included in the patient's chart. FINDINGS Upon colonoscopy, there was no evidence for angiodysplastic lesions, diverticula or kiesha malignancies. The patient was found to have four diminutive-appearing colonic polyps within the rectal vault that were likely hyperplastic in nature, on the order of 5 mm in diameter. Nonetheless these polyps were grasped and removed in their entirety via cold biopsy technique and submitted for pathologic evaluation. DESCRIPTION OF PROCEDURE After informed consent was obtained, the patient was brought to the endoscopy suite and placed on the table in left lateral decubitus position. The patient subsequently underwent total intravenous anesthesia by the nurse telephone station installer per my request. Formal time-out was then completed. Next, a digital examination was performed. Normal sphincter tone. No rectal masses were appreciated. An Olympus colonoscope was inserted in the anus and advanced with the lumen of the colon under direct visualization at all times till the cecum was ascertained. Triangulation of the taenia coli, ileocecal valve and appendiceal lumen were all visualized. Scope was slowly withdrawn, again maintaining visualization of the lumen at all times. As stated above, the entire colon was without evidence for angiodysplastic lesions, diverticula or kiesha allergies. Once the scope was withdrawn back to rectal vault, one could see a few diminutive-appearing colonic polyps that were on the order of about 4-5 mm in diameter. These appeared to be hyperplastic in nature. Nonetheless, as stated above, each polyp was grasped and removed in its entirety and submitted for pathologic evaluation via cold biopsy technique. J-maneuver was performed. No worrisome perianal pathology was noted. The patient was found have some small benign anal papillae. Colonoscope was then allowed to straighten and withdrawn through the anal verge. The patient tolerated the procedure without difficulty and was send back to the preop area in stable condition. Will await the biopsy results for today's colonoscopy and will proceed accordingly with further recommendations thereafter. [facility]
== END 2016-09-28 10:38 | disposition home or self-care (01) ==
LOC: SCU 07:18
PROVIDERS: ATTEND Surgery
DX: Z12.11 Encounter for screening for malignant neoplasm of colon (principal); K62.1 Rectal polyp; F17.210 Nicotine dependence, cigarettes, uncomplicated; K21.9 Gastro-esophageal reflux disease without esophagitis; I10 Essential (primary) hypertension; E66.3 Overweight; Z68.32 Body mass index [BMI] 32.0-32.9, adult; Z79.899 Other long term (current) drug therapy
CPT/HCPCS: 45380; J2704; J7120